=== PATIENT | female | born 1985 | race Caucasian/White ===

== ENCOUNTER 2017-10-20 20:40 | Inpatient (IN) | payer OTHER ==
[2017-10-20 21:37] VITALS: BP 140/79
[2017-10-20 21:58] LABS: APPEARANCE CLOUDY ((CLEAR)); BILIRUBIN NEGATIVE; BLOOD SMALL; COLOR YELLOW ((YELLOW)); GLUCOSE (STRIP) NEGATIVE; KETONES NEGATIVE; LEUKOCYTES NEGATIVE; NITRITE NEGATIVE; PROTEIN (STRIP) 100; SPECIFIC GRAVITY 1.009 (1.000-1.030); UROBILINOGEN 0.2 MG/DL (0.2-1.0)
[2017-10-20 22:07] LABS: AMPHETAMINE NEGATIVE (500 ng/mL); BARBITURATES NEGATIVE (200 ng/mL); BENZODIAZEPINES NEGATIVE (150 ng/mL); BUPRENORPHINE NEGATIVE (10 ng/mL); COCAINE NEGATIVE (150 ng/mL); METHADONE NEGATIVE (200 ng/mL); METHAMPHETAMINE NEGATIVE (500 ng/mL); OPIATES (MORPHINE) NEGATIVE (100 ng/mL); OXYCODONE NEGATIVE (100 ng/mL); PHENCYCLIDINE NEGATIVE (25 ng/mL); PROPOXYPHENE NEGATIVE (300 ng/mL); THC CANNABINOIDS NEGATIVE (50 ng/mL); TRICYCLIC ANTIDEPRESSANTS NEGATIVE (300 ng/mL)
[2017-10-20 22:08] LABS: BASOPHIL (%) 0.2 % (0-1); EOSINOPHIL (%) 0.4 % (0-5); HEMATOCRIT 29.4 % (36.0-46.0); HEMOGLOBIN 9.2 G/DL (11.9-15.5); IMMATURE GRANULOCYTE (%) 0.9 % (0.0-0.7); LYMPHOCYTE (%) 15.3 % (15-42); LYMPHOCYTE COUNT 1.4 K/uL (1.0-2.8); MCH 25.6 PG (29.0-34.0); MCHC 31.3 G/DL (30.0-36.0); MCV 81.7 FL (83-99); MONOCYTE (%) 7.9 % (3-12); MONOCYTE COUNT 0.7 K/uL (0-0.8); NEUTROPHIL (%) 75.3 % (45-76); NEUTROPHIL COUNT 6.8 K/uL (1.8-6.4); NRBC (%) 0.4 /100 WBC (0-0); PLATELET COUNT 151 K/uL (156-360); RBC DIS.WIDTH-CV 15.4 % (11.8-14.6); RBC DIS.WIDTH-SD 46.2 % (39-53); WHITE BLOOD COUNT 9.1 K/uL (4.1-10.2)
[2017-10-20 22:11] LABS: BACTERIA RARE /HPF; EPITHELIAL CELLS 3+ /HPF; MUCUS TRACE /LPF; RED BLOOD CELLS 0-5 /HPF (0-5); UCUL ADDED? NO; WHITE BLOOD CELLS 0-5 /HPF (0-5)
[2017-10-20] MEDS ORDERED: EXPECTA PRENAT1 EACH PO (22:26)
[2017-10-20 22:45] VITALS: BP 121/76
[2017-10-20 23:28] LABS: ANTI-HIV (AIDS STAT TEST) NONREACTIVE
[2017-10-20 23:37] VITALS: BP 135/91
[2017-10-20 23:40] VITALS: BP 122/81
[2017-10-21] VITALS (12 sets, daily range): BP systolic 122–145; BP diastolic 68–91
[2017-10-21 09:04] LABS: HEMOGLOBIN A1c (GLYCOHEMOGLOB) 5.3 % (Below 5.7)
[2017-10-21 10:55] LABS: HEPATITIS B SURFACE ANTIGEN Nonreactive
[2017-10-21 10:56] LABS: HIV-1/2 AB/AG COMBO Nonreactive
[2017-10-22 07:54] VITALS: BP 132/71
[2017-10-22 09:17] LABS: BASOPHIL (%) 0.5 % (0-1); EOSINOPHIL (%) 1.4 % (0-5); EOSINOPHIL COUNT 0.1 K/uL (0-0.3); HEMATOCRIT 28.3 % (36.0-46.0); HEMOGLOBIN 8.7 G/DL (11.9-15.5); LYMPHOCYTE (%) 20.1 % (15-42); LYMPHOCYTE COUNT 1.8 K/uL (1.0-2.8); MCH 25.6 PG (29.0-34.0); MCHC 30.7 G/DL (30.0-36.0); MCV 83.2 FL (83-99); MONOCYTE (%) 4.8 % (3-12); MONOCYTE COUNT 0.4 K/uL (0-0.8); NEUTROPHIL (%) 72.2 % (45-76); NEUTROPHIL COUNT 6.4 K/uL (1.8-6.4); PLATELET COUNT 149 K/uL (156-360); RBC DIS.WIDTH-CV 15.7 % (11.8-14.6); RBC DIS.WIDTH-SD 46.7 % (39-53); WHITE BLOOD COUNT 8.8 K/uL (4.1-10.2)
[2017-10-22 15:32] VITALS: BP 113/75
[2017-10-22 23:33] VITALS: BP 136/77
[2017-10-23 07:42] VITALS: BP 119/84
[2017-10-23] MEDS ORDERED: IBUPROFEN800 MG PO (10:49)
[2017-10-23] MEDS ORDERED: FERROCITE324 MG PO (10:49)
[2017-10-23] MEDS ORDERED: DOCUSATE SODIU100 MG PO (10:49)
== END 2017-10-23 14:25 | disposition home or self-care (01) | DRG 775 ==
LOC: LDRP-OP 20:40 → 2WEST 20:41
PROVIDERS: Advanced Practice Midwife
PROC: 10E0XZZ Delivery of Products of Conception, External Approach (ICD-10-PCS; principal; 2017-10-21)
DX: O99.824 Streptococcus B carrier state complicating childbirth (principal); Z37.0 Single live birth; E66.3 Overweight; Z3A.37 37 weeks gestation of pregnancy
CPT/HCPCS: 81003; 83036; 85025; 86762; 87340; 87389; G0378; J0595; J2540; J7120